=== PATIENT | male | born 1940 | race Caucasian/White ===

== ENCOUNTER 2017-01-13 22:50 | Observation (INO) | payer MEDICARE ==
[~2017-01-13] VITALS: Ht 190.5 cm; Wt 125.1 kg
[~2017-01-13 22:50] MED LIST: ASPI325T4 PO; CEPH-368 PO; COLE1TAB2 PO; CYCL5TAB PO; HYDR-3307 PO; IBUP800T PO; LEVO75TA PO; SENN8.6T98 PO; SIMV20TA3 PO; THYROID PILL PO
[2017-01-13] MEDS ORDERED: ASPIRIN 81 MG TABLET CHEW ONE (23:16)
[2017-01-13 23:28] LABS: HEMOGLOBIN 15.3 g/dL (13.7-18.0)
[2017-01-13] MEDS ORDERED: ASPIRIN 81 MG TABLET CHEW PO ONE (23:30)
[2017-01-13] MEDS ORDERED: SODIUM CHLORIDE FLUSH 10ML SYR IVF ONE (23:30)
[2017-01-13 23:40] LABS: BLOOD UREA NITROGEN 25 mg/dL (7-18)
[2017-01-13 23:44] LABS: IS PT STATUS REG ER OR PRE ER? YES
[2017-01-14] MEDS ORDERED: SODIUM CHLORIDE 0.9% 1,000ML IVBOLUS ONE (00:30)
[2017-01-14] MEDS ORDERED: SODIUM CHLORIDE 0.9% 1,000 ML IV ONE (00:30)
[2017-01-14] MEDS ORDERED: DOCUSATE 100 MG CAPSULE PO PRN (02:00)
[2017-01-14] MEDS ORDERED: LABETALOL 5MG/ML, 20ML IV PRN (02:00)
[2017-01-14] MEDS ORDERED: ONDANSETRON ODT 4 MG PO PRN (02:00)
[2017-01-14] MEDS ORDERED: ATORVASTATIN 80 MG TABLET PO SCH (02:00)
[2017-01-14] MEDS ORDERED: TRAZODONE 50MG TABLET PO PRN (02:00)
[2017-01-14] MEDS ORDERED: BISACODYL 10 MG SUPP PR PRN (02:00)
[2017-01-14] MEDS ORDERED: ACETAMINOPHEN 325 MG TABLET PO PRN (02:00)
[2017-01-14] MEDS ORDERED: POLYETHYLENE GLYCOL 17 GM PACKET PO PRN (02:00)
[2017-01-14 02:24] VITALS: BP 128/82
[2017-01-14] MEDS: HEPARIN 5,000 UNITS/ML, 1ML SQ SCH ×2 (03:35→10:00)
[2017-01-14] MEDS ORDERED: SODIUM CHLORIDE 0.9% 1,000 ML IV SCH (04:30)
[2017-01-14] MEDS ORDERED: LEVOTHYROXINE 75 MCG TABLET PO SCH (06:00)
[2017-01-14 06:03] LABS: IS PT STATUS REG ER OR PRE ER? NO
[2017-01-14 07:42] VITALS: BP 115/79
[2017-01-14] MEDS ORDERED: REGADENOSON 0.4 MG/5 ML SYRINGE ONE (08:29)
[2017-01-14] MEDS ORDERED: COLESTIPOL 1 GM TABLET PO SCH (09:00)
[2017-01-14 12:01] LABS: IS PT STATUS REG ER OR PRE ER? NO
[2017-01-14 13:18] VITALS: BP 141/89
[2017-01-14] MEDS ORDERED: ASPIRIN 325 MG TABLET PO SCH (21:00)
== END 2017-01-14 16:45 | disposition home or self-care (01) ==
LOC: ED 23:59 → INTOOBSV 01-14 00:36 → EDIP 01-14 00:36 → 5SO 01-14 01:40
PROVIDERS: ADMIT Internal Medicine; ATTEND Internal Medicine
DX: R07.89 Other chest pain (principal); N17.9 Acute kidney failure, unspecified; R79.89 Other specified abnormal findings of blood chemistry; E87.1 Hypo-osmolality and hyponatremia; D72.828 Other elevated white blood cell count; E03.9 Hypothyroidism, unspecified; J84.9 Interstitial pulmonary disease, unspecified; I48.1 Persistent atrial fibrillation; F12.90 Cannabis use, unspecified, uncomplicated; I48.2 Chronic atrial fibrillation; I51.7 Cardiomegaly; E78.00 Pure hypercholesterolemia, unspecified; J98.11 Atelectasis; Q60.0 Renal agenesis, unilateral; Z87.891 Personal history of nicotine dependence; Z85.51 Personal history of malignant neoplasm of bladder; Z98.890 Other specified postprocedural states; Z90.49 Acquired absence of other specified parts of digestive tract
CPT/HCPCS: 36415; 71010; 78452; 80048; 80061; 82040; 84439; 84443; 84484; 85025; 93005; 93017; 96360; 96361; 96372; 99285; A9502; C9898; G0378; J1644; J2785; J7030

== ENCOUNTER → 2017-05-11 | Outpatient (CLI) | payer MEDICARE ==
[~2017-05-11] MED LIST changes: +GASTROGRAFIN 120 ML SOLN PO ONE; +OMNIPAQUE 350 MG/ML, 150 ML BOTTLE ONE
== END | disposition home or self-care (01) ==
LOC: RAD 14:13
PROVIDERS: ATTEND Internal Medicine
DX: K57.30 Diverticulosis of large intestine without perforation or abscess without bleeding (principal); K56.69 Other intestinal obstruction; N39.498 Other specified urinary incontinence; R19.5 Other fecal abnormalities; K59.09 Other constipation
CPT/HCPCS: 74270; Q9963; Q9967

== ENCOUNTER → 2017-07-09 | Outpatient (CLI) | payer MEDICARE ==
[~2017-07-09] MED LIST changes: +ASPI325T17 PO; -ASPI325T4 PO; -GASTROGRAFIN 120 ML SOLN PO ONE; +IBUP-1223 PO; -IBUP800T PO; -OMNIPAQUE 350 MG/ML, 150 ML BOTTLE ONE
== END | disposition home or self-care (01) ==
LOC: CFH 15:04
PROVIDERS: ATTEND Nurse Practitioner
DX: Z12.2 Encounter for screening for malignant neoplasm of respiratory organs (principal); I25.10 Atherosclerotic heart disease of native coronary artery without angina pectoris; R91.1 Solitary pulmonary nodule; Z87.891 Personal history of nicotine dependence
CPT/HCPCS: G0297

== ENCOUNTER → 2017-10-19 | Outpatient (CLI) | payer MEDICARE ==
[~2017-10-19] MED LIST changes: +OMNIPAQUE 350 MG/ML, 100ML BOTTLE ONE
== END | disposition home or self-care (01) ==
LOC: CFH 12:52
PROVIDERS: ATTEND Nurse Practitioner Primary Care
DX: K57.30 Diverticulosis of large intestine without perforation or abscess without bleeding (principal); K76.0 Fatty (change of) liver, not elsewhere classified; Z98.890 Other specified postprocedural states; Z90.79 Acquired absence of other genital organ(s)
CPT/HCPCS: 74177; 82565; Q9967

== ENCOUNTER → 2018-01-30 | Outpatient (CLI) | payer MEDICARE ==
[~2018-01-30] MED LIST changes: -OMNIPAQUE 350 MG/ML, 100ML BOTTLE ONE
== END | disposition home or self-care (01) ==
LOC: CFH 14:20
PROVIDERS: ATTEND Registered Nurse Registered Nurse First Assistant
DX: M51.16 Intervertebral disc disorders with radiculopathy, lumbar region (principal); M48.07 Spinal stenosis, lumbosacral region; M25.78 Osteophyte, vertebrae
CPT/HCPCS: 72110; 72148

== ENCOUNTER → 2018-05-29 | Outpatient (CLI) | payer MEDICARE | END | disposition home or self-care (01) | LOC: CVU 14:44 | PROVIDERS: ATTEND Nurse Practitioner Family | DX: I34.0 Nonrheumatic mitral (valve) insufficiency (principal); I71.2 Thoracic aortic aneurysm, without rupture; I48.91 Unspecified atrial fibrillation | CPT/HCPCS: 93306 ==

== ENCOUNTER 2018-08-23 08:32 | Inpatient (IN) | payer MEDICARE ==
[~2018-08-23] VITALS: Ht 190.5 cm; Wt 114.0 kg
[2018-08-23 08:53] VITALS: BP 134/68
[2018-08-23] MEDS ORDERED: CEFAZOLIN PMX 1GM/50ML 50 ML IVPB ONE (09:00)
[2018-08-23] MEDS ORDERED: PLEASE ENTER HEIGHT AND WEIGHT MC SCH (09:00)
[2018-08-23] MEDS ORDERED: vitamin b12 (09:12)
[2018-08-23] MEDS ORDERED: HYDR-3622 PO (09:12)
[2018-08-23] MEDS ORDERED: ERGO500017 PO (09:14)
[2018-08-23] MEDS ORDERED: Vitamin B12 IJ (09:14)
[2018-08-23 09:32] LABS: BASOPHILS % (AUTO) 1 % (0-1); EOSINOPHILS % (AUTO) 5 % (1-7); LYMPHOCYTES # (AUTO) 1.73 x10^3/uL (1-3.4); LYMPHOCYTES % (AUTO) 20 % (22-44); MD NO; MEAN CORPUSCULAR HEMOGLOBIN 31.5 pg (27.5-34.5); MEAN CORPUSCULAR HGB CONC 33.7 g/dL (33.2-36.2); MEAN CORPUSCULAR VOLUME 93.5 fL (81-97); MEAN PLATELET VOLUME 8.8 fL (7.4-10.4); MONOCYTES # (AUTO) 0.94 x10^3/uL (0.2-0.8); MONOCYTES % (AUTO) 11 % (2-9); NEUTROPHILS # (AUTO) 5.67 x10^3/uL (1.8-6.8); NEUTROPHILS % (AUTO) 64 % (42-75); PLATELET COUNT 215 x10^3/uL (130-400); RED BLOOD COUNT 4.68 x10^6/uL (4.38-5.82); RED CELL DISTRIBUTION WIDTH 13.9 % (9.4-14.8)
[2018-08-23 09:44] LABS: ALBUMIN 3.4 g/dL (3.4-5.0); ANION GAP 9 mmol/L (5-15); CALCIUM 8.2 mg/dL (8.5-10.1); CHLORIDE 113 mmol/L (98-107)
[2018-08-23 09:49] LABS: ALANINE AMINOTRANSFERASE 29 U/L (12-78); ALKALINE PHOSPHATASE 55 U/L (45-117); BILIRUBIN,TOTAL 0.5 mg/dL (0.2-1.0); CREATININE 1.05 mg/dL (0.7-1.3)
[2018-08-23] MEDS ORDERED: CEFAZOLIN 1,000 MG ONE (09:50)
[2018-08-23] MEDS ORDERED: MIDAZOLAM 1 MG/ML, 5ML ONE (09:50)
[2018-08-23] MEDS ORDERED: CEFAZOLIN PMX 1GM/50ML 50 ML ONE (09:50)
[2018-08-23] MEDS ORDERED: FENTANYL PF 100 MCG/2ML ONE (09:50)
[2018-08-23] MEDS ORDERED: LIDOCAINE/PF 1%, 30ML ONE (09:50)
[2018-08-23] MEDS ORDERED: HOLD MEDICATION MC PRN (11:00)
[2018-08-23] MEDS ORDERED: ZOLPIDEM 5MG TABLET PO PRN (11:00)
[2018-08-23] MEDS ORDERED: HYDROcodone/APAP 5/325 TABLET PO PRN (11:00)
[2018-08-23] MEDS: SODIUM CHLORIDE 0.9% 1,000 ML IV SCH ×2 (11:35→16:50)
[2018-08-23] MEDS: SODIUM CHLORIDE FLUSH 10ML SYR IVF SCH ×2 (12:00→21:14)
[2018-08-23 12:46] VITALS: BP 125/68
[2018-08-23 18:08] VITALS: BP 128/78
[2018-08-23] MEDS: METOPROLOL TARTRATE 25 MG TABLET PO SCH (18:10)
[2018-08-23] MEDS: CEFAZOLIN PMX 1GM/50ML 50 ML IVPB SCH (18:16)
[2018-08-23 18:31] VITALS: BP 120/69
[2018-08-23] MEDS ORDERED: ASPIRIN 325 MG TABLET PO SCH (21:00)
[2018-08-24 00:35] VITALS: BP 119/59
[2018-08-24] MEDS: SODIUM CHLORIDE 0.9% 1,000 ML IV SCH ×2 (00:50→08:50)
[2018-08-24] MEDS: CEFAZOLIN PMX 1GM/50ML 50 ML IVPB SCH ×2 (01:51→09:10)
[2018-08-24 05:38] VITALS: BP 111/61
[2018-08-24] MEDS: METOPROLOL TARTRATE 25 MG TABLET PO SCH (05:44)
[2018-08-24] MEDS ORDERED: LEVOTHYROXINE 175 MCG TABLET PO SCH (06:00)
[2018-08-24 06:45] VITALS: BP 103/62
[2018-08-24] MEDS: SODIUM CHLORIDE FLUSH 10ML SYR IVF SCH (09:11)
[2018-08-24] MEDS ORDERED: METO25TA35 PO (10:01)
== END 2018-08-24 14:06 | disposition home or self-care (01) | DRG 243 ==
LOC: CACL 08:32 → ORIP 10:42 → 5SO 11:20
PROVIDERS: ADMIT Internal Medicine Cardiovascular Disease; ATTEND Internal Medicine Cardiovascular Disease
PROC: 0JH604Z Insertion of Pacemaker, Single Chamber into Chest Subcutaneous Tissue and Fascia, Open Approach (ICD-10-PCS; principal; 2018-08-23)
PROC: 02HK3JZ Insertion of Pacemaker Lead into Right Ventricle, Percutaneous Approach (ICD-10-PCS; 2018-08-23)
DX: I48.91 Unspecified atrial fibrillation (principal); D68.69 Other thrombophilia; E66.09 Other obesity due to excess calories; I71.2 Thoracic aortic aneurysm, without rupture; I12.9 Hypertensive chronic kidney disease with stage 1 through stage 4 chronic kidney disease, or unspecified chronic kidney disease; N18.9 Chronic kidney disease, unspecified; E03.9 Hypothyroidism, unspecified; G89.29 Other chronic pain; M54.2 Cervicalgia; E78.5 Hyperlipidemia, unspecified; Z88.8 Allergy status to other drugs, medicaments and biological substances; Z85.51 Personal history of malignant neoplasm of bladder; Z68.31 Body mass index [BMI] 31.0-31.9, adult
CPT/HCPCS: 33207; 36415; 71045; 71046; 80053; 85025; 93005; 99156; 99157; C1779; C1786; C1892; G0378; J0690; J2250; J3010; J3490

== ENCOUNTER → 2018-11-22 | Outpatient (CLI) | payer MEDICARE ==
[~2018-11-22] MED LIST changes: +ERGO500017 PO; +HYDR-3622 PO; +METO25TA35 PO; +Vitamin B12 IJ; +vitamin b12
== END | disposition home or self-care (01) ==
LOC: CFH 14:14
PROVIDERS: ATTEND Registered Nurse Registered Nurse First Assistant
DX: M47.816 Spondylosis without myelopathy or radiculopathy, lumbar region (principal); M48.061 Spinal stenosis, lumbar region without neurogenic claudication; M96.0 Pseudarthrosis after fusion or arthrodesis
CPT/HCPCS: 72131